=== PATIENT | female | born 1935 | race Caucasian/White ===

== ENCOUNTER → 2016-07-31 | Outpatient (CLI) | payer OTHER ==
[~2016-07-31] MED LIST: AVAPRO300 MG PO; Ascorbic Acid,Ester- PO; Ativan PO; BENTYL20 MG PO; CALTRATE 6001 TABLE1 PO; CELEBREX200 MG PO; CENTRUM SILV1 TABLE1 PO; CRESTOR20 MG PO; Ecotrin PO; FOSAMAX PLUS PO; Feosol PO; Flexeril PO; Glucosamine/Chondroi PO; NASONEX17 GM NS; Ocean Nasal 0.65% NS; Omega III EPA + DHA PO; PATANOL OP100 DROP/5 BOTH EYES; PLAVIX75 MG PO; Potassium Gluconate PO; Prevacid PO; SENOKOT S,PE1 TABLET PO; Tenormin PO; Vicodin,Norco 5/325 PO
== END | disposition home or self-care (01) ==
DX: Z47.1 Aftercare following joint replacement surgery (principal); Z96.652 Presence of left artificial knee joint; R26.2 Difficulty in walking, not elsewhere classified; M25.562 Pain in left knee; M25.662 Stiffness of left knee, not elsewhere classified; M62.81 Muscle weakness (generalized)
CPT/HCPCS: 97110 GP; 97150 GO; 97161 GP; 97165 GO; G8978 GP; G8979 GP; G8980 GP; G8990 GO; G8991 GO; G8992 GO

== ENCOUNTER 2016-09-03 08:52 | Inpatient (IN) | payer OTHER ==
[~2016-09-03] VITALS: Ht 165.1 cm; Wt 87.4 kg
[~2016-09-03 08:52] MED LIST changes: +ATENOLOL100 MG PO; +FISH OIL 1,0001 EAC7 PO; +GLUCOSAMINE-CH1 EA34 PO; +IRON325 M1 PO; +LANSOPRAZOLE30 MG PO; +LO-DOSE ASPIRIN81 M2 PO; +TRAMADOL HCL50 MG PO; +TYLENOL ARTHRI650 MG PO; +VITAMIN C500 M1 PO; +VITAMIN D31000 UNI2 PO
[2016-09-03] MEDS ORDERED: BENADRYL25 MG PO (09:56)
[2016-09-03 09:57] VITALS: BP 192/87
[2016-09-03 16:49] VITALS: BP 184/84
[2016-09-03 17:02] LABS: HEMATOCRIT 37.5 % (36.0-46.0); MCH 30.7 PG (29.0-34.0); MCHC 33.1 G/DL (30.0-36.0); MCV 92.8 FL (83-99); MEAN PLAT.VOLUME 9.6 uM^3 (9.5-12.4); PLATELET COUNT 261 K/uL (156-360); RBC DIS.WIDTH-CV 13.1 % (11.8-14.6); RBC DIS.WIDTH-SD 44.7 % (39-53); RED BLOOD COUNT 4.04 M/uL (3.80-5.20)
[2016-09-03 17:08] LABS: WHITE BLOOD COUNT 16.6 K/uL (4.1-10.2)
[2016-09-03 19:36] VITALS: BP 172/74
[2016-09-04] VITALS (7 sets, daily range): BP systolic 106–162; BP diastolic 56–75
[2016-09-04 05:23] LABS: HEMATOCRIT 32.3 % (36.0-46.0); MCV 93.1 FL (83-99)
[2016-09-04 05:57] LABS: ANION GAP 10 MEQ/L (2-14); CHLORIDE 97 MEQ/L (99-109); GFR ESTIMATE (CALCULATED) > 59 mL/min/; GLUCOSE 154 mg/dL (70-99); SAMPLE HEMOLYSIS CHECK 0; SAMPLE ICTERIC CHECK 0; SAMPLE LIPEMIA CHECK 0; SODIUM 127 MEQ/L (136-147); UREA NITROGEN (BUN) 17 mg/dL (9-23)
[2016-09-05 04:04] VITALS: BP 130/59
[2016-09-05 08:00] VITALS: BP 143/67
[2016-09-05 11:51] VITALS: BP 104/53
[2016-09-05 15:53] VITALS: BP 120/55
[2016-09-05 16:09] LABS: CHLORIDE 98 mEq/L (99-109); SODIUM 127 mEq/L (136-147)
[2016-09-05 16:10] LABS: GLUCOSE 140 mg/dL (70-99)
[2016-09-05 16:12] LABS: ANION GAP 9 MEQ/L (2-14)
[2016-09-05 16:14] LABS: GFR ESTIMATE (CALCULATED) 46 mL/min/
[2016-09-05 16:15] LABS: HEMATOCRIT 26.5 % (36.0-46.0); MCV 92.3 FL (83-99)
[2016-09-05 16:18] LABS: UREA NITROGEN (BUN) 27 mg/dL (9-23)
[2016-09-05 20:13] VITALS: BP 100/51
[2016-09-06] VITALS: BP 113/56
[2016-09-06 04:07] VITALS: BP 123/60
[2016-09-06 07:59] VITALS: BP 139/67
[2016-09-06] MEDS ORDERED: LOVENOX40 MG/0.4 SC (09:42)
[2016-09-06] MEDS ORDERED: ENDOCET 5-3251 EACH PO (09:42)
[2016-09-06 10:34] LABS: HEMATOCRIT 25.3 % (36.0-46.0); MCH 30.9 PG (29.0-34.0); MCHC 33.6 G/DL (30.0-36.0); MEAN PLAT.VOLUME 10.5 uM^3 (9.5-12.4); PLATELET COUNT 191 K/uL (156-360); RBC DIS.WIDTH-CV 13.1 % (11.8-14.6); RBC DIS.WIDTH-SD 43.9 % (39-53); WHITE BLOOD COUNT 11.9 K/uL (4.1-10.2)
[2016-09-06 10:40] LABS: RED BLOOD COUNT 2.75 M/uL (3.80-5.20)
[2016-09-06 10:49] LABS: CHLORIDE 101 mEq/L (99-109); POTASSIUM 4.1 mEq/L (3.7-5.4); SODIUM 130 mEq/L (136-147)
[2016-09-06 10:51] LABS: GLUCOSE 168 mg/dL (70-99)
[2016-09-06 10:52] LABS: ANION GAP 11 MEQ/L (2-14)
[2016-09-06 10:55] LABS: GFR ESTIMATE (CALCULATED) > 59 mL/min/
[2016-09-06 10:56] LABS: UREA NITROGEN (BUN) 27 mg/dL (9-23)
[2016-09-06 11:53] VITALS: BP 96/52
== END 2016-09-06 14:30 | DRG 941 ==
LOC: 2SOUTH 08:52 → 3WEST 09:22 → 2SOUTH 10:16 → 3WEST 16:38
PROVIDERS: Orthopaedic Surgery
DX: T84.093D Other mechanical complication of internal left knee prosthesis, subsequent encounter (principal); M17.11 Unilateral primary osteoarthritis, right knee; I10 Essential (primary) hypertension; E78.00 Pure hypercholesterolemia, unspecified; K21.9 Gastro-esophageal reflux disease without esophagitis; I51.9 Heart disease, unspecified; Z90.49 Acquired absence of other specified parts of digestive tract; Z68.31 Body mass index [BMI] 31.0-31.9, adult
CPT/HCPCS: 71010; 73560; 80048; 85014; 85018; 85027; C1713; C1776; J0690; J1170; J1650; J7030; J7050